=== PATIENT | female | born 1980 | race Two or more races ===

== ENCOUNTER 2018-03-30 18:29 | Emergency (ER) | payer BC, MEDICAID ==
--- NOTE | 2018-03-30 19:47 | ER Document Report ---
ED Medical Screen (RME) - General Chief Complaint: Headache Stated Complaint: HEADACHE/VOMITING Time Seen by Provider: 03/30/18 19:42 Mode of Arrival: Ambulatory Information source: Patient TRAVEL OUTSIDE OF THE [place] IN LAST 30 DAYS: No - HPI Onset: Other - 3 DAYS' HEADACHE, VOMITING BEGAN LAST PM. Onset/Duration: Gradual Context: HAS PRIOR H/O SIMILAR HEADACHES, USUALLY NOT SO PROLONGED. Quality of pain: Achy, Dull Severity: Moderate Associated Symptoms: Nausea, Vomiting - VOMITED SEIZURE MEDS THIS A.M. Exacerbated by: Denies Relieved by: Denies Similar symptoms previously: Yes Recently seen / treated by doctor: No - Related Data Allergies/Adverse Reactions: ceftriaxone sodium [From Rocephin] Allergy (Verified 03/30/18 18:29) iodine [Iodine] Allergy (Verified 03/30/18 18:29) ketorolac tromethamine [From Toradol] Allergy (Verified 03/30/18 18:29) Home Medications: dilantin, keppra Past Medical History - General Information source: Patient - Social History Chew tobacco use (# tins/day): No Frequency of alcohol use: Occasional Drug Abuse: None Family history: Reviewed & Not Pertinent - Past Medical History Cardiac Medical History: Reports: None Pulmonary Medical History: Reports: None EENT Medical History: Reports: None Neurological Medical History: Reports: Hx Migraine, Hx Seizures Endocrine Medical History: Reports: None Renal/ Medical History: Reports: None. Denies: Hx Peritoneal Dialysis Malignancy Medical History: Reports: None GI Medical History: Reports: None Musculoskeltal Medical History: Reports None Psychiatric Medical History: Reports: None Past Surgical History: Reports: Hx Tubal Ligation - Essure - Immunizations Hx Diphtheria, Pertussis, Tetanus Vaccination: Yes Review of Systems - Review of Systems Constitutional: Chills, Fever EENT: No symptoms reported Cardiovascular: No symptoms reported Respiratory: No symptoms reported Gastrointestinal: See HPI, Blood in vomit - SMALL AMT. Genitourinary: No symptoms reported Female Genitourinary: No symptoms reported Musculoskeletal: No symptoms reported Skin: No symptoms reported Neurological/Psychological: See HPI Physical Exam - Vital signs Vitals: Temp Pulse Resp BP Pulse Ox 100.2 F 114 H 20 137/94 H 100 03/30/18 18:33 03/30/18 18:33 03/30/18 18:33 03/30/18 18:33 03/30/18 18:33 Interpretation: Hypertensive, Tachycardic, Febrile. No: Tachypneic - General General appearance: Appears well, Alert In distress: None - HEENT Head: Normocephalic Eyes: Normal Conjunctiva: Normal Ears: Normal Nasal: Normal Mouth/Lips: Normal Mucous membranes: Normal Neck: Normal, Supple - Respiratory Respiratory status: No respiratory distress - Cardiovascular Rhythm: Regular - Abdominal Inspection: Normal Distension: No distension - Extremities General upper extremity: Normal inspection General lower extremity: Normal inspection - Neurological Neuro grossly intact: Yes Cognition: Normal Orientation: AAOx4 - Psychological Associated symptoms: Normal affect, Normal mood - Skin Skin Temperature: Warm Skin Moisture: Dry Skin Color: Normal Skin Turgor: Elastic Course - Vital Signs Vital signs: Temp Pulse Resp BP Pulse Ox 100.2 F 114 H 20 137/94 H 100 03/30/18 18:33 03/30/18 18:33 03/30/18 18:33 03/30/18 18:33 03/30/18 18:33
[2018-03-30] MEDS ORDERED: NORMAL SALINE 1000 ML 1,000 ML IV PRN (19:48)
[2018-03-30] MEDS ORDERED: METOCLOPRAMIDE HCL INJ/PF 10 MG/2 ML SDV IV ONE (19:48)
[2018-03-30] MEDS ORDERED: DIPHENHYDRAMINE HCL 50 MG/ML VIAL IV ONE (19:48)
[2018-03-30] MEDS ORDERED: PHENYTOIN SODIUM INJ/PF 250 MG/5 ML SDV IV ONE ×2 (19:48→20:43)
[2018-03-30 20:44] LABS: ABSOLUTE BASOPHILS # (AUTO) 0.1 10^3/uL (0.0-0.2); ABSOLUTE EOSINOPHILS # (AUTO) 0.2 10^3/uL (0.0-0.6); ABSOLUTE MONOCYTES (AUTO) 0.6 10^3/uL (0.1-1.4); ABSOLUTE NEUT (AUTO) 2.4 10^3/uL (1.7-8.2); BASOPHILS % (AUTO) 1.2 % (0-2); EOSINOPHILS % (AUTO) 4.1 % (0-6); HEMATOCRIT 33.3 % (36.0-47.0); HEMOGLOBIN 10.5 g/dL (12.0-15.5); LYMPHOCYTES % (AUTO) 23.2 % (13-45); MEAN CORPUSCULAR HEMOGLOBIN 23.6 pg (27.0-33.4); MEAN CORPUSCULAR HGB CONC 31.5 g/dL (32.0-36.0); MEAN CORPUSCULAR VOLUME 75 fl (80-97); MONOCYTES % (AUTO) 14.1 % (3-13); PLATELET COUNT 363 10^3/uL (150-450); RED BLOOD COUNT 4.45 10^6/uL (3.72-5.28); RED CELL DISTRIBUTION WIDTH 19.5 % (11.5-14.0); SEGMENTED NEUTROPHILS % (AUTO) 57.4 % (42-78); TOTAL CELLS COUNTED % (AUTO) 100 %; WHITE BLOOD COUNT 4.1 10^3/uL (4.0-10.5)
[2018-03-30] MEDS ORDERED: LEVETIRACETAM 1000 MG/NACL-ISO 1,000 MG/100 ML RTUPB IV ONE ×2 (20:44→20:49)
[2018-03-30 21:02] LABS: ALANINE AMINOTRANSFERASE 35 U/L (9-52); ALBUMIN 4.8 g/dL (3.5-5.0); ALKALINE PHOSPHATASE 89 U/L (38-126); ANION GAP 17 (5-19); ASPARTATE AMINO TRANSFERASE 42 U/L (14-36); BILIRUBIN,DIRECT 0.3 mg/dL (0.0-0.4); BILIRUBIN,TOTAL 0.3 mg/dL (0.2-1.3); BLOOD UREA NITROGEN 5 mg/dL (7-20); CALCIUM 9.1 mg/dL (8.4-10.2); CARBON DIOXIDE 24 mmol/L (22-30); CHLORIDE 105 mmol/L (98-107); GLUCOSE 107 mg/dL (75-110); POTASSIUM 3.8 mmol/L (3.6-5.0); SODIUM 146.2 mmol/L (137-145); TOTAL PROTEIN 7.8 g/dL (6.3-8.2)
[2018-03-30 21:26] LABS: APPEARANCE,URINE CLOUDY; BILIRUBIN,URINE NEGATIVE (NEGATIVE); GLUCOSE, URINE NEGATIVE (NEGATIVE); KETONES,URINE NEGATIVE (NEGATIVE); LEUKOCYTE ESTERASE,URINE SMALL (NEGATIVE); NITRITE,URINE NEGATIVE (NEGATIVE); PROTEIN,URINE 30 mg/dL (NEGATIVE); UROBILINOGEN,URINE NEGATIVE mg/dL (<2.0)
[2018-03-30 21:29] LABS: COLOR,URINE YELLOW
--- NOTE | 2018-03-30 23:34 | RADIOLOGY REPORT (SQ) ---
EXAM DESCRIPTION: CT HEAD WITHOUT COMPLETED DATE/TIME: 03/30/2018 11:13 pm REASON FOR STUDY: headache, vomiting COMPARISON: 10/26/2014 TECHNIQUE: Axial images acquired through the brain without intravenous contrast. Images reviewed wi th bone, brain and subdural windows. Images stored on PACS. All CT scanners at this facility use dose modulation, iterative reconstruction, and/or weight based d osing when appropriate to reduce radiation dose to as low as reasonably achievable (ALARA). [facility]: Dose Right [facility]: CareDose [facility]: Dose Right [facility]: Teradose 4D [facility]: Smart iPrism [employer] RADIATION DOSE: CT Rad equipment meets quality standard of care and radiation dose reduction techniq ues were employed. CTDIvol: 53.2 mGy. DLP: 1097 mGy-cm. mGy. LIMITATIONS: None. FINDINGS: VENTRICLES: Normal size and contour. CEREBRUM: No masses. No hemorrhage. No midline shift. No evidence for acute infarction. Normal gra y/white matter differentiation. No areas of low density in the white matter. CEREBELLUM: No masses. No hemorrhage. No alteration of density. No evidence for acute infarction. EXTRAAXIAL SPACES: No fluid collections. No masses. ORBITS AND GLOBE: No intra- or extraconal masses. Normal contour of globe without masses. CALVARIUM: No fracture. PARANASAL SINUSES: No fluid or mucosal thickening. SOFT TISSUES: No mass or hematoma. OTHER: No other significant finding. IMPRESSION: No acute intracranial findings. EVIDENCE OF ACUTE STROKE: NO. COMMENT: Quality ID # [id number]: Final reports with documentation of one or more dose reduction techniques (e.g., Automated exposure control, adjustment of the mA and/or kV according to patient size, use of iterative reconstruction technique) TECHNICAL DOCUMENTATION: JOB ID: [id number] [place]-72 2010 [employer]- All Rights Reserved Reading location - IP/workstation name: [email or web address]
[2018-03-31] MEDS ORDERED: ONDANSETRON ODT 4 MG TAB (6 TAB/ER DISP) PO PRN ×2 (00:07→01:09)
--- NOTE | 2018-03-31 00:07 | ER Document Report ---
ED General - General Mode of Arrival: Ambulatory Information source: Patient TRAVEL OUTSIDE OF THE [place] IN LAST 30 DAYS: No - HPI Patient complains to provider of: Headache, nausea, and vomiting Associated symptoms: Other - see notes above - Related Data Home Medications: aidanantin, damarisra <KELSEY ZHAO - Last Filed: 03/31/18 00:12> <GALINDO MORILLO - Last Filed: 03/31/18 03:14> - General Chief Complaint: Headache Stated Complaint: HEADACHE/VOMITING Time Seen by Provider: 03/30/18 19:42 Notes: 37 year old female with history of seizure presents to the ED complaining of nausea and vomiting that started last night. Patient reports that she has been unable to keep her seizure medication down. Patient denies having a seizure. Patient additionally complains of a headache following her vomiting episodes and a productive cough that started last night. Patient denies congestion, abdominal pain, or diarrhea. Patient has been around her fiance who recently had pneumonia. (KELSEY ZHAO) - Related Data Allergies/Adverse Reactions: ceftriaxone sodium [From Rocephin] Allergy (Verified 03/30/18 18:29) iodine [Iodine] Allergy (Verified 03/30/18 18:29) ketorolac tromethamine [From Toradol] Allergy (Verified 03/30/18 18:29) Past Medical History - General Information source: Patient - Social History Smoking Status: Never Smoker Chew tobacco use (# tins/day): No Frequency of alcohol use: Occasional Drug Abuse: None Family History: Reviewed & Not Pertinent Patient has suicidal ideation: No Patient has homicidal ideation: No - Past Medical History Cardiac Medical History: Reports: None Pulmonary Medical History: Reports: None EENT Medical History: Reports: None Neurological Medical History: Reports: Hx Migraine, Hx Seizures Endocrine Medical History: Reports: None Renal/ Medical History: Reports: None. Denies: Hx Peritoneal Dialysis Malignancy Medical History: Reports: None GI Medical History: Reports: None Musculoskeltal Medical History: Reports None Psychiatric Medical History: Reports: None Past Surgical History: Reports: Hx Tubal Ligation - Immunizations Hx Diphtheria, Pertussis, Tetanus Vaccination: Yes <KELSEY ZHAO - Last Filed: 03/31/18 00:12> Review of Systems - Review of Systems Constitutional: No symptoms reported EENT: No symptoms reported. denies: Nose congestion Cardiovascular: No symptoms reported Respiratory: See HPI, Cough, Sputum Gastrointestinal: See HPI, Vomiting. denies: Abdominal pain, Diarrhea Genitourinary: No symptoms reported Female Genitourinary: No symptoms reported Musculoskeletal: No symptoms reported Skin: No symptoms reported Hematologic/Lymphatic: No symptoms reported Neurological/Psychological: See HPI, Headaches -: Yes All other systems reviewed and negative <KELSEY ZHAO - Last Filed: 03/31/18 00:12> Physical Exam - General General appearance: Alert In distress: None - HEENT Head: Normocephalic, Atraumatic Eyes: Normal Extraocular movements intact: Yes Pupils: PERRL - Respiratory Respiratory status: No respiratory distress Breath sounds: Normal - Cardiovascular Rhythm: Regular Heart sounds: Normal auscultation - Abdominal Inspection: Normal Distension: No distension Tenderness: Nontender - Extremities General upper extremity: Normal inspection General lower extremity: Normal inspection - Neurological Neuro grossly intact: Yes - Psychological Associated symptoms: Normal affect, Normal mood - Skin Skin Temperature: Warm Skin Moisture: Dry Skin Color: Normal <KELSEY ZHAO - Last Filed: 03/31/18 00:12> - Vital signs Vitals: Temp Pulse Resp BP Pulse Ox 100.2 F 114 H 20 137/94 H 100 03/30/18 18:33 03/30/18 18:33 03/30/18 18:33 03/30/18 18:33 03/30/18 18:33 Course - Laboratory Result Diagrams: 03/30/18 20:23 03/30/18 20:23 <KELSEY ZHAO - Last Filed: 03/31/18 00:12> - Laboratory Result Diagrams: 03/30/18 20:23 03/30/18 20:23 - Diagnostic Test Radiology reviewed: Reports reviewed <GALINDO MORILLO - Last Filed: 03/31/18 03:14> - Re-evaluation Re-evalutation: 03/31/18 Patient is feeling better after medications. She no longer has a headache. She is able to take p.o. without difficulty. No abdominal pain or tenderness. Patient states she would like to go home and she will follow-up with her own doctor. She does not need a refill of any medications. No acute findings on blood work or imaging. Stable for discharge. (GALINDO MORILLO) - Vital Signs Vital signs: Temp Pulse Resp BP Pulse Ox 98.8 F 114 H 17 139/81 H 100 03/31/18 01:24 03/30/18 18:33 03/31/18 01:24 03/31/18 01:24 03/31/18 01:24 - Laboratory Laboratory results interpreted by me: 03/30/18 03/30/18 03/30/18 20:23 20:23 20:23 Hgb 10.5 L Hct 33.3 L MCV 75 L MCH 23.6 L MCHC 31.5 L RDW 19.5 H Monocytes % 14.1 H Sodium 146.2 H BUN 5 L AST 42 H Urine Protein 30 H Ur Leukocyte Esterase SMALL H Urine Ascorbic Acid 40 H Discharge <KELSEY ZHAO - Last Filed: 03/31/18 00:12> <GALINDO MORILLO - Last Filed: 03/31/18 03:14> - Discharge Clinical Impression: Dehydration Vomiting Qualifiers: Vomiting type: unspecified Vomiting Intractability: unspecified Nausea presence : with nausea Qualified Code(s): R11.2 - Nausea with vomiting, unspecified Headache Qualifiers: Headache type: unspecified Headache chronicity pattern: acute headache Intractability: not intractable Qualified Code(s): R51 - Headache Condition: Stable Disposition: HOME, SELF-CARE Instructions: Headache ([facility]), Vomiting ([facility]) Additional Instructions: Please follow-up with your doctor. Please return immediately if you have any further concerns. Scribe Attestation: 03/31/18 03:14 I personally performed the services described in the documentation, reviewed and edited the documentation which was dictated to the scribe in my presence, and it accurately records my words and actions. (GALINDO MORILLO) Scribe Documentation - Scribe Written by Aneesh:: Aneesh Aeljandre, 03/31/2018 1219 acting as scribe for :: Aaliyah <KELSEY ZHAO - Last Filed: 03/31/18 00:12>
[2018-03-31 01:56] VITALS: BP 139/81
== END 2018-03-31 01:40 | disposition home or self-care (01) ==
LOC: ER 18:29
DX: E86.0 Dehydration (principal); R11.2 Nausea with vomiting, unspecified; R51 Headache; R05 Cough
CPT/HCPCS: 99284; 96375; 96365; 36415; 85025; 81025; 80053; 81001; 70450; J1200; J2765; J1165; J7030; J1953

== ENCOUNTER 2018-06-04 08:10 | Emergency (ER) | payer MEDICAID ==
[2018-06-04 08:17] VITALS: BP 128/83
--- NOTE | 2018-06-04 09:00 | ER Document Report ---
HPI - HPI Patient complains to provider of: Dental decay and abscess Onset: Yesterday Onset/Duration: Gradual Pain Level: 5 Context: 37-year-old female complaining of dental pain decay and now she has an abscess. No fever chills and no facial swelling Associated Symptoms: None Exacerbated by: Denies Relieved by: Denies Similar symptoms previously: No Recently seen / treated by doctor: No - ROS ROS below otherwise negative: Yes Systems Reviewed and Negative: Yes All other systems reviewed and negative - NEURO Neurology: REPORTS: Headache Past Medical History - General Information source: Patient - Social History Smoking Status: Unknown if Ever Smoked Chew tobacco use (# tins/day): No Frequency of alcohol use: None Drug Abuse: None Lives with: Family Family History: Reviewed & Not Pertinent Patient has suicidal ideation: No Patient has homicidal ideation: No Neurological Medical History: Reports: Hx Migraine, Hx Seizures Renal/ Medical History: Denies: Hx Peritoneal Dialysis Surgical Hx: Negative Past Surgical History: Reports: Hx Tubal Ligation - Immunizations Hx Diphtheria, Pertussis, Tetanus Vaccination: Yes Vertical Provider Document - CONSTITUTIONAL Agree With Documented VS: Yes Exam Limitations: No Limitations General Appearance: No Apparent Distress - INFECTION CONTROL TRAVEL OUTSIDE OF THE [place] IN LAST 30 DAYS: No - HEENT Notes: Dental abscess adjacent to left lower molar - NECK Neck: Supple. negative: Lymphadenopathy-Left, Lymphadenopathy-Right - NEURO Level of Consciousness: Alert - DERM Integumentary: No Rash Course - Vital Signs Vital signs: Temp Pulse Resp BP Pulse Ox 98.6 F 95 18 128/83 H 99 06/04/18 08:16 06/04/18 08:16 06/04/18 08:16 06/04/18 08:16 06/04/18 08:16 Discharge - Discharge Clinical Impression: Dental abscess Condition: Good Disposition: HOME, SELF-CARE Instructions: Acetaminophen, Dentist, Dental Infection or Abscess ([facility]), Ibuprofen (General) ([facility]), Penicillin V K ([facility]) Additional Instructions: Warm compress Antibiotics See the dentist Return to the emergency room for worsening of the symptoms Prescriptions: Ibuprofen [Motrin 800 mg Tablet] 800 mg PO Q8HP PRN #30 tablet PRN Reason: Penicillin V Potassium [Penicillin Vk 500 mg Tablet] 500 mg PO QID #40 tablet Forms: Return to Work Referrals: DEANA,ILEANA, PA-C [Primary Care Provider] - Follow up as needed
[2018-06-04] MEDS ORDERED: LIDOCAINE 2% VISCOUS SOLN 20 ML UDCUP PO ONE (09:17)
== END 2018-06-04 09:27 | disposition home or self-care (01) ==
LOC: ER 08:10
DX: K04.7 Periapical abscess without sinus (principal)
CPT/HCPCS: 99282; J3490